=== PATIENT | male | born 1950 | race Hispanic/Latino ===

== ENCOUNTER → 2023-11-13 | Outpatient (CLI) | payer MEDICARE ==
[2023-11-13 12:28] LABS: ALBUMIN 3.9 g/dL (3.5-5.0); BILIRUBIN,TOTAL 0.7 mg/dL (0.2-1.0); CREATININE 1.1 mg/dL (0.5-1.3); POTASSIUM 4.3 mmol/L (3.5-5.1); TOTAL PROTEIN, SERUM 7.1 g/dL (6.0-8.3)
== END | disposition home or self-care (01) ==
LOC: LAB 08:10
PROVIDERS: ATTEND Internal Medicine Cardiovascular Disease
DX: R00.1 Bradycardia, unspecified (principal)
CPT/HCPCS: 36415; 80053

== ENCOUNTER → 2023-12-01 | Outpatient (CLI) | payer MEDICARE | END | disposition home or self-care (01) | LOC: SHCH 13:17 → EDUNIT# 13:30 | PROVIDERS: ATTEND Internal Medicine Cardiovascular Disease | DX: R00.1 Bradycardia, unspecified (principal) | CPT/HCPCS: 93306 ==

== ENCOUNTER → 2023-12-03 | Outpatient (CLI) | payer MEDICARE ==
[~2023-12-03] MED LIST: IOHEXOL 350 MG/ML 100ML INFUS..BTL IV ONE
== END | disposition home or self-care (01) ==
LOC: EDUNIT# 11:00 → RAH 11:08
PROVIDERS: ATTEND Internal Medicine Cardiovascular Disease
DX: R00.1 Bradycardia, unspecified (principal); M47.815 Spondylosis without myelopathy or radiculopathy, thoracolumbar region; Z82.49 Family history of ischemic heart disease and other diseases of the circulatory system
CPT/HCPCS: 75574; Q9967

== ENCOUNTER → 2024-08-05 | Outpatient (CLI) | payer MEDICARE ==
[2024-08-05 12:14] LABS: BASOPHILS # (AUTO) 0.04 K/uL (0.00-0.20); BASOPHILS % (AUTO) 0.5 % (0.0-5.0); EOSINOPHILS # (AUTO) 0.28 K/uL (0.00-0.70); EOSINOPHILS % (AUTO) 3.3 % (0.0-8.0); HEMATOCRIT 47.1 % (42-54); IMMATURE GRANULOCYTE ABSOLUTE 0.03 K/uL (0-1); LYMPHOCYTES # (AUTO) 2.5 K/uL (1.0-4.8); LYMPHOCYTES % (AUTO) 29.4 % (21.0-51.0); MEAN CORPUSCULAR HEMOGLOBIN 30.9 pg (27.0-33.0); MEAN CORPUSCULAR HGB CONC 33.3 g/dL (32.0-36.0); MEAN CORPUSCULAR VOLUME 92.7 fL (79-99); MONOCYTES % (AUTO) 12.4 % (3.0-13.0); NEUTROPHILS # (AUTO) 4.5 K/uL (1.8-7.7); PLATELET COUNT (AUTO) 178 K/uL (130-400); RED BLOOD CELL COUNT(AUTO) 5.08 MIL/uL (4.50-6.20); RED CELL DISTRIBUTION WIDTH 13.6 % (11.0-15.5); WHITE BLOOD COUNT (AUTO) 8.4 K/uL (4.8-10.8)
[2024-08-05 12:22] LABS: HEMOGLOBIN A1C 9.2 % (4.0-6.0)
[2024-08-05 12:41] LABS: ALBUMIN 3.9 g/dL (3.5-5.0); BILIRUBIN,TOTAL 0.7 mg/dL (0.2-1.0); CREATININE 1.1 mg/dL (0.5-1.3); MAGNESIUM 1.9 mg/dL (1.80-2.40); POTASSIUM 4.2 mmol/L (3.5-5.1); T4 (THYROXINE) 7.3 ug/dL (4.7-13.3); THYROID STIMULATING HORMONE 2.12 uIU/mL (0.36-3.74); TOTAL PROTEIN, SERUM 7.1 g/dL (6.0-8.3)
== END | disposition home or self-care (01) ==
LOC: LAB 08:19
PROVIDERS: ATTEND Internal Medicine Cardiovascular Disease
DX: E11.9 Type 2 diabetes mellitus without complications (principal); E78.2 Mixed hyperlipidemia
CPT/HCPCS: 36415; 80053; 80061; 83036; 83735; 84436; 84443; 84479; 85025